=== PATIENT | male | born 1975 | race Caucasian/White ===

== ENCOUNTER 2016-04-28 19:49 | Emergency (ER) ==
[2016-04-28 19:56] VITALS: BP 124/83
[2016-04-28] MEDS ORDERED: DILAUDID IM ONE (21:19)
[2016-04-28] MEDS ORDERED: CLINDAMYCIN IM ONE (21:19)
[2016-04-28] MEDS ORDERED: ZOFRAN IM ONE (21:19)
--- NOTE | 2016-04-28 21:22 | PROVIDER DOCUMENTATION ---
HPI-Rash/Wound/ReCheck - General Source: patient - History of Present Illness-Dermatology Location: reports: other (RIGHT SIDE TOP OF BUTTOCK CRACK) Quality: reports: burning, painful Severity: reports: moderate Onset/Duration: reports: 3 days ago Timing: reports: still present, getting worse Context/Associated Symptoms: reports: abscess, swelling/mass/lumps, tender area . denies: insect bite/sting, bruising/hematoma, incised wound Identifiable cause?: No Exposure: reports: unknown cause Locality of Occurance: Home Similar Symptoms Previously?: No Recently seen or treated by another doctor?: No <Carmela Bernard - Last Filed: 04/28/16 21:51> - General Source: patient <Temo Garcia - Last Filed: 04/28/16 22:45> - General Chief Complaint: Abscess Stated Complaint: BUTT HURTS (KNOT) Time Seen by Provider: 04/28/16 20:30 Allergies/Adverse Reactions: Allergies Allergy/AdvReac Type Severity Reaction Status Date / Time No Known Allergies Allergy Verified 04/28/16 19:56 Home Medications: Home Medication List Medication Instructions Recorded Confirmed Last Taken Type Clindamycin [Cleocin] 150 mg PO Q6HR #30 capsule 04/28/16 Unknown Rx Ketorolac [Toradol] 10 mg PO Q6H PRN PRN #6 tablet 04/28/16 Unknown Rx Sulfamethoxazole/Trimethoprim 1 each PO BID #20 tablet 04/28/16 Unknown Rx [Bactrim Ds Tablet] - History of Present Illness-Dermatology Nature of Presenting Problem: PT IS A 40YOM PRESENTING TO THE ED C/O POSSIBLE ABSCESS. PT STATES 3 DAYS AGO HE NOTICED A VERY PAINFUL AREA AT THE TOP OF HIS BUTT CRACK MORE SO TO THE RIGHT SIDE. PT STATES ITS GOTTEN LARGER AND MORE FIRM IN THE PAST FEW DAYS. HE DENIES FEVER BUT THERE IS REDNESS AND VERY TENDER TO TOUCH. (Carmela Bernard) Review of Systems - Adult - REVIEW OF SYSTEMS - ADULT Constitutional: reports: no symptoms reported Eyes: reports: no symptoms reported Ears, Nose, Mouth & Throat: reports: no symptoms reported Cardiovascular: reports: no symptoms reported Respiratory: reports: no symptoms reported Gastrointestinal: reports: no symptoms reported Genitourinary: reports: no symptoms reported Musculoskeletal: reports: no symptoms reported Integumentary: reports: see HPI, skin sores/ulcer. denies: nail changes Neurological: reports: no symptoms reported Psychiatric: reports: no symptoms reported Endocrine: reports: no symptoms reported Hematologic/Lymphatic: reports: no symptoms reported Allergic/Immunologic: reports: no symptoms reported All Other Systems: Reviewed and Negative <Carmela Bernard - Last Filed: 04/28/16 21:51> Past History - Adult - PAST MEDICAL HISTORY-ADULT Review of Records: reports: Old Records Reviewed, Nursing Assessment Review, Medications Reviewed, Social history reviewed & non-contributory. Major Childhood Illnesses: reports: denies history Cardiovascular: reports: denies history Respiratory: reports: denies history Gastrointestinal: reports: denies history Obstetrical/Gynecological: reports: denies history Genitourinary: reports: denies history Musculoskeletal: reports: denies history Neurological: reports: denies history Endocrine/Immune: reports: denies history Other Conditions: reports: denies history - IMMUNIZATION STATUS Childhood Immunizations: See Nurse Assessment Flu Vaccine: See Nurse Assessment - FAMILY HISTORY Family History: reviewed, not pertinent - SOCIAL HISTORY Smoking: cigarettes, greater than 1 pack/day Provider spent 3-5 mins advising pt. on dangers of tobacco.: Discussed manners to quit use, and f/u contacts for add'l counseling. Substance Use: none/never, denies Alcohol Use Frequency: never Living Situation: family <Carmela Bernard - Last Filed: 04/28/16 21:51> - PAST MEDICAL HISTORY-ADULT Major Childhood Illnesses: reports: denies history Cardiovascular: reports: denies history Respiratory: reports: denies history Gastrointestinal: reports: denies history Genitourinary: reports: denies history Musculoskeletal: reports: denies history Neurological: reports: denies history Psychiatric: reports: denies history Endocrine/Immune: reports: denies history - PRIOR SURGERIES/PROCEDURES Surgical/Procedure History: reports: appendectomy, tonsillectomy, hernia repair - PRIOR HOSPITALIZATIONS Prior Hospitalizations: reports: none - IMMUNIZATION STATUS Childhood Immunizations: See Nurse Assessment Flu Vaccine: See Nurse Assessment - FAMILY HISTORY Family History: reviewed, not pertinent <Temo Garcia - Last Filed: 04/28/16 22:45> Physical Exam-General - PHYSICAL EXAM-ADULT Initial Vital Signs Reviewed: Yes - CONSTITUTIONAL General Appearance: appears well, alert, no apparent distress. negative: mild distress, moderate distress, severe distress, cachetic, obese, thin, anxious, lethargic, slow to respond, obtunded, combative, other - EYES Eyes: PERRL/EOMI, pink conjunctivae. negative: fundi clear, no AV nicking, anisocoria, conjuctival exudate, EOM palsy, meningismus, pale conjunctivae, photophobia, sclera injected, scleral icterus, subconjunctival hemorrhage, sunken eyes, other - HEAD, EARS, NOSE, MOUTH & THROAT HENMT: normocephalic/atraumatic, moist mucous membranes, normal ENT inspection, TMs normal, pharynx normal. negative: angioedema, dental decay, hearing deficit , pharyngeal erythema, tonsillar exudate, TM abnormal, TM obscurred by cerumen, frontal tenderness, maxillary tenderness, other - NECK Neck: non-tender, full range of motion, supple, normal inspection. negative: Brudzinski's sign, carotid bruit, C-spine tenderness, limited range of motion, lymphadenopathy, meningismus, trachial deviation, tender lateral, tender midline , thyromegaly, other - RESPIRATORY Respiratory: chest non-tender, lungs clear, normal breath sounds, no pleuratic chest pain, no respiratory distress, no accessory muscle use. negative: respiratory distress, decreased breath sounds, accessory muscle use, crackles, rales, rhonchi, stridor, wheezing, dull on percussion, prolonged expiration, pain on inspiration, plerual rub, retractions, splinting, decreased rate, increased rate, crepitus, other - CARDIOVASCULAR Cardiovascular: normal peripheral pulses, regular rate, rhythm, no edema, no gallop, no JVD, no murmur. negative: JVD, bradycardia, tachycardia, diastolic murmur, systolic murmur, gallop/S3, gallop/S4, extra beats, friction rub, irregularly irregular, PMI displaced laterally, other - GASTROINTESTINAL (ABDOMEN) Abdominal Exam: normal bowel sounds, non tender, soft, no organomegaly, no pulsatile mass. negative: abdominal bruit, abnormal bowel sounds, distended, guarding, rigid, rebound, tenderness, hernia, mass, hepatomegaly, spleenomegaly , McBurney's point tenderness, Rowan's sign, obturator sign, prominent aortic pulsations, psoas, Rovsing's sign, other - GENITOURINARY Male Genitalia: deferred Rectal Exam: normal exam Hemoccult Exam: deferred - LYMPHATIC Lymphatic: no adenopathy. negative: axilla node tender, cervical node tenderness, inguinal node tender, enlargement, striations, streaking, other - MUSCULOSKELETAL Back Exam: normal inspection, no CVA tenderness, no vertebral tenderness. negative: CVA tenderness, decreased range of motion, ecchymosis, kyphosis, lordosis, muscle spasm, scoliosis, swelling, vertebral tenderness, other Extremity: normal range of motion, non-tender, normal gait, normal inspection, no pedal edema, no calf tenderness, normal capillary refill. negative: pelvis stable, abnormal NV exam, calf tenderness, deformity, erythema, inflammation, joint effusion, pulse deficit, pedal edema, slow capillary refill, swelling, tenderness, other - SKIN Integumentary: erythema (left buttocks), swelling, tenderness - NEUROLOGIC Neurologic: grossly normal - PSYCHIATRIC Psych/Mental Status: oriented x 3 <Temo Garcia - Last Filed: 04/28/16 22:45> Departure <Carmela Bernard - Last Filed: 04/28/16 21:51> - Departure Time of Disposition Order: 21:20 Certified Medical Emergency: Emergent <Temo Garcia - Last Filed: 04/28/16 22:45> - Departure DIAGNOSIS: Pilonidal cyst Disposition: HOME 01 Condition: Stable Additional Instructions: ED Follow Up Instructions: You have been treated by a care provider in the Emergency Department. These instructions are being provided to you so you can have an understanding of how to care for yourself upon discharge. Upon discharge from the Emergency Department, you are responsible for making arrangements for follow-up care by a physician of your choice. Take all prescribed medications as directed. Return to the Emergency Department immediately for any new or worsening symptoms. You may call the Physician Referral phone number at [phone] to obtain a list of Physicians who are taking new patients. Prescriptions: Sulfamethoxazole/Trimethoprim [Bactrim Ds Tablet] 1 each PO BID #20 tablet Clindamycin [Cleocin] 150 mg PO Q6HR #30 capsule Ketorolac [Toradol] 10 mg PO Q6H PRN PRN #6 tablet PRN Reason: Pain Referrals: Mj Wright MD [STAFF PHYSICIAN] - None,PCP [Primary Care Provider] - Forms: Return to School/Parent Work Instructions: Clindamycin capsules, Ketorolac tablets, Epidermal Cyst, Sulfamethoxazole; Trimethoprim, SMX-TMP tablets Attestation - Scribe Verification/Attestation Scribe:: Carmela Bernard Acting as Scribe for:: Temo Garcia Scribe documention review:: This chart was documented by a scribe and accurately reflects the service the provider performed and the decisions made by the provider. <Carmela Bernard - Last Filed: 04/28/16 21:51> - Physician/ MONICA Attestation Patient care was provided by Advanced Practice Provider:: Yes Advanced Practice Provider:: Temo Garcia Advanced Practice Provider documentation review:: The Mid-level provider documentation, treatment plan and medical decision making was reviewed by the physician who agrees with all treatment and medical decision making by the MLP. <Temo Garcia - Last Filed: 04/28/16 22:45> Physician Attestation - Physician Attestation I, the provider, attest to the following statement:: Jamie Jones Physician documentation Attestation:: This documentation recorded by the scribe accurately reflects the service I personally performed and the decisions made by me. <Carmela Bernard - Last Filed: 04/28/16 21:51>
== END 2016-04-28 21:58 | disposition home or self-care (01) ==
LOC: P.ED 19:49
DX: L05.91 Pilonidal cyst without abscess (principal); M79.1 Myalgia; R22.2 Localized swelling, mass and lump, trunk; L98.9 Disorder of the skin and subcutaneous tissue, unspecified; L53.9 Erythematous condition, unspecified; F17.210 Nicotine dependence, cigarettes, uncomplicated; Z71.6 Tobacco abuse counseling
CPT/HCPCS: 96372; J1170; J2405; S0077